=== PATIENT | female | born 1955 | race Caucasian/White ===

== ENCOUNTER 2021-03-13 11:33 | Emergency (ER) | payer MEDICAID ==
[2021-03-13 11:50] VITALS: BP 157/94; PULSE 68
[2021-03-13] MEDS ORDERED: Amoxicillin/Clavulanate K 875-125 MG Tab PO ONE (12:24)
[2021-03-13] MEDS ORDERED: Bacitracin Oint 1 GM U/D Packet TOP ONE (12:24)
--- NOTE | 2021-03-13 12:30 | EDM.PDOC ---
ED HPI GENERAL MEDICAL PROBLEM - General Chief Complaint: Bite:Animal, Insect Stated Complaint: DOG BITE Time Seen by Provider: 03/13/21 12:20 Source of Information: Reports: Patient, Old Records, RN History Limitations: Reports: No Limitations - History of Present Illness INITIAL COMMENTS - FREE TEXT/NARRATIVE: 66 yo female was bitten by a dog on her R abdominal wall just before arrival. She is not sure about her tetanus, the dog is supposedly fully vaccinated. Onset: Today, Sudden Onset Date: 03/13/21 Duration: Minutes:, Constant Location: Reports: Abdomen Quality: Reports: Dull Severity: Mild Improves with: Reports: None Worsens with: Reports: None Context: Reports: Trauma Associated Symptoms: Reports: No Other Symptoms Treatments OPERATER: Reports: Other (see below) (none) - Related Data Allergies Allergy/AdvReac Type Severity Reaction Status Date / Time Iodinated Contrast Media Allergy Airway Verified 03/13/21 12:00 [Iodinated Contrast Media - Tightness IV Dye] Home Meds: Home Meds Amoxicillin/Potassium Clav [Augmentin 875-125 Tablet] 1 each PO Q12H #5 tablet 03/13/21 [Rx] Past Medical History - Infectious Disease History Infectious Disease History: Reports: Chicken Pox - Past Surgical History GI Surgical History: Reports: Hernia Repair/Other Social & Family History - Tobacco Use Tobacco Use Status *Q: Never Tobacco User ED ROS GENERAL - Review of Systems Review Of Systems: See Below Constitutional: Reports: No Symptoms Skin: Reports: Wound (superficial puncture wounds of R abdomen, no active bleeding) Neurological: Reports: No Symptoms Psychiatric: Reports: No Symptoms ED EXAM, ANIMAL BITE - Physical Exam Exam: See Below Exam Limited By: No Limitations General Appearance: Alert, WD/WN, No Apparent Distress GI/Abdominal: Soft, Non-Tender, No Distention Back Exam: Normal Inspection. No: CVA Tenderness (R), CVA Tenderness (L) Extremities: Normal Inspection, Normal Range of Motion, Non-Tender, No Pedal Edema Neurological: Alert, Oriented, CN II-XII Intact, Normal Cognition, No Motor/Sensory Deficits Psychiatric: Normal Affect, Normal Mood Skin Exam: Normal Color, Warm/Dry, Jaundice, Other (superficial puncture wounds of R lower abdomen. ) Course - Vital Signs Last Recorded V/S: Last Vital Signs Temp 36.6 C 08/03/21 12:00 Pulse 68 03/13/21 12:00 Resp 16 03/13/21 12:00 BP 157/94 H 03/13/21 12:00 Pulse Ox 92 L 03/13/21 12:00 - Orders/Labs/Meds Meds: Medications Discontinued Medications Generic Name Dose Route Start Last Admin Trade Name Ramsesq PRN Reason Stop Dose Admin Amoxicillin/Clavulanate Potassium 1 tab 03/13/21 12:24 Amoxicillin/Clavulanate K 875-125 Mg Tab PO 03/13/21 12:25 ONETIME ONE Bacitracin 1 dose 03/13/21 12:24 Bacitracin Oint 1 Gm U/D Packet TOP 03/13/21 12:25 ONETIME ONE Departure - Departure Time of Disposition: 12:40 Disposition: Home, Self-Care 01 Condition: Good Clinical Impression: Open wound of abdominal wall due to dog bite - Discharge Information *PRESCRIPTION DRUG MONITORING PROGRAM REVIEWED*: Not Applicable *COPY OF PRESCRIPTION DRUG MONITORING REPORT IN PATIENT IRAM: Not Applicable Prescriptions: Amoxicillin/Potassium Clav [Augmentin 875-125 Tablet] 1 each PO Q12H #5 tablet Instructions: Animal Bite, Adult, [id number] Referrals: Be Galindo MD [Primary Care Provider] - Forms: ED Department Discharge Additional Instructions: Clean wound twice daily with soap and water. Dry. Apply antibiotic ointment and a new dressing. Take Augmentin as directed until gone. Recheck for signs of infection. Use acetaminophen for pain relief as needed. Sepsis Event Note (ED) - Evaluation Sepsis Screening Result: No Definite Risk - Focused Exam Vital Signs: Vital Signs Temp Pulse Resp BP Pulse Ox 03/13/21 12:00 36.6 C 68 16 157/94 H 92 L 03/13/21 11:49 36.6 C 68 16 157/94 H 92 L
== END 2021-03-13 13:01 | disposition home or self-care (01) ==
LOC: JP.ED 11:33
DX: S31.153A Open bite of abdominal wall, right lower quadrant without penetration into peritoneal cavity, initial encounter (principal); Z91.041 Radiographic dye allergy status; W54.0XXA Bitten by dog, initial encounter; Y92.009 Unspecified place in unspecified non-institutional (private) residence as the place of occurrence of the external cause
CPT/HCPCS: 99283; A9270

== ENCOUNTER 2023-09-19 06:20 | Day surgery (SDC) | payer MEDICARE, MEDICAID ==
[2023-09-19] MEDS: Sodium Chloride 0.9% 1,000 ML IV SCH (07:02)
[2023-09-19] MEDS ORDERED: Propofol 200 MG/20 ML SDV ONE (07:12)
[2023-09-19] MEDS ORDERED: Midazolam 1 MG/ML 2 ML SDV ONE (07:12)
[2023-09-19] MEDS ORDERED: fentaNYL 50 MCG/ML SDV ONE (07:12)
[2023-09-19 09:21] VITALS: BP 119/57; PULSE 55
== END 2023-09-19 09:40 | disposition home or self-care (01) ==
LOC: JP.SDS 06:20
PROVIDERS: ATTEND Surgery
DX: Z12.11 Encounter for screening for malignant neoplasm of colon (principal); D12.2 Benign neoplasm of ascending colon; D12.4 Benign neoplasm of descending colon; K63.5 Polyp of colon; Z80.0 Family history of malignant neoplasm of digestive organs
CPT/HCPCS: 45380; 45385; 88305; J2250; J2704; J3010; J7030